=== PATIENT | male | born 1950 | race Caucasian/White ===

== ENCOUNTER 2020-12-24 23:03 | Emergency (ER) | payer MEDICARE ==
[~2020-12-24] VITALS: Ht 182.9 cm; Wt 63.5 kg
[~2020-12-24 23:03] MED LIST: FLEXERIL PO; IBUPROFEN 800800 M1 PO; NORCO 5-325 TA1 EACH PO; PROBIOTIC1 EAC1 PO; TRAZODONE HCL100 MG PO
[2020-12-24] MEDS ORDERED: ASA81BEC PO (23:17)
[2020-12-25] MEDS ORDERED: PREDNISONE50 MG PO (00:34)
[2020-12-25] MEDS ORDERED: HYDROCODONE-CH115 ML PO (00:34)
[2020-12-25 00:42] VITALS: BP 152/89
== END 2020-12-25 00:44 | disposition home or self-care (01) ==
LOC: M.ERS 23:03
DX: R05 Cough (principal); Z79.82 Long term (current) use of aspirin; Z90.49 Acquired absence of other specified parts of digestive tract; Z88.5 Allergy status to narcotic agent